=== PATIENT | female | born 1945 | race Two or more races ===

== ENCOUNTER → 2024-12-07 | Outpatient (CLI) | payer MEDICARE, SELFPAY ==
--- NOTE | 2024-12-07 09:22 | XR_ITS ---
Examination: PA lateral chest 2 views TECHNIQUE: Upright PA lateral chest 2 views Exam date and time: November 06, 2025 at 0932 hours INDICATIONS: Chronic coughing 3 years worse the last week. FINDINGS: Subtle pneumonia diffusely in the right lung and in the lingular segment left upper lobe Normal heart size Mild hyperexpansion IMPRESSION: Bilateral pneumonia as above
== END | disposition home or self-care (01) ==
LOC: SDIM 09:07
PROVIDERS: PCP Nurse Practitioner Primary Care; Referring Provider Nurse Practitioner Primary Care; Visit Provider Nurse Practitioner Primary Care
DX: J18.9 Pneumonia, unspecified organism (principal)
CPT/HCPCS: 71046

== ENCOUNTER → 2025-01-18 | Outpatient (CLI) | payer MEDICARE, SELFPAY ==
--- NOTE | 2025-01-18 10:45 | XR_ITS ---
Examination: PA lateral chest 2 views Technique: AP lateral chest 2 views Exam date and time: January 18, 2025 1057 hrs. Comparison December 07, 2024 Indications: Diffuse pneumonia right lung pneumonia in the lingular segment on chest film December 07, 2024. Findings: Normal heart size Significant hyperexpansion Parenchymal disease remains in the lingular segment Accentuation bronchovascular markings Prominent osteopenia Impression: COPD Scarring versus pneumonia in the lingular segment left upper lobe Bibasilar bronchiectasis
== END | disposition home or self-care (01) ==
PROVIDERS: PCP Nurse Practitioner Primary Care; Referring Provider Nurse Practitioner Primary Care; Visit Provider Nurse Practitioner Primary Care
DX: J44.9 Chronic obstructive pulmonary disease, unspecified (principal); R91.8 Other nonspecific abnormal finding of lung field; J47.9 Bronchiectasis, uncomplicated
CPT/HCPCS: 71046

== ENCOUNTER → 2025-02-23 | Outpatient (CLI) | payer MEDICARE, SELFPAY ==
[2025-02-23 12:15] VITALS: PULSE 76; RESP 16; O2SAT 98
[2025-02-23 12:31] VITALS: PULSE 70
[2025-02-23] MEDS: ALBUTEROL RT 2.5 MG/0.5 ML NEBU INH (12:31)
[2025-02-23 12:32] VITALS: PULSE 16; RESP 70; O2SAT 98
[2025-02-23] MEDS: SODIUM CHLORIDE RT SOL 0.9% 3 ML NEBU INH (12:32)
== END | disposition home or self-care (01) ==
PROVIDERS: PCP Nurse Practitioner Primary Care; Referring Provider Nurse Practitioner Primary Care; Visit Provider Nurse Practitioner Primary Care
DX: J47.9 Bronchiectasis, uncomplicated (principal)
CPT/HCPCS: 94013; 94060; 94640; 94726; 94729

== ENCOUNTER → 2025-05-03 | Outpatient (CLI) | payer OTHER, SELFPAY ==
--- NOTE | 2025-05-03 11:12 | XR_ITS ---
Examination: Lumbar spine, 5 views Technique: Lumbar spine AP, lateral, coned lateral lower lumbar spine, bilateral obliques 5 views Exam date and time: May 03, 2025 1134 hours INDICATIONS: Low back pain radiating down the right leg beginning one month ago FINDINGS: Prominent osteopenia Grade 1 anterolisthesis L4 on L5 No lumbar fracture Mild disc narrowing L4-L5, L5-S1 IMPRESSION: Mild disc narrowing L4-L5, L5-S1
== END | disposition home or self-care (01) ==
PROVIDERS: PCP Internal Medicine; Referring Provider Nurse Practitioner Primary Care; Visit Provider Nurse Practitioner Primary Care
DX: M48.061 Spinal stenosis, lumbar region without neurogenic claudication (principal); M48.07 Spinal stenosis, lumbosacral region
CPT/HCPCS: 72110

== ENCOUNTER → 2025-07-14 | Outpatient (CLI) | payer OTHER, SELFPAY ==
--- NOTE | 2025-07-14 09:11 | XR_ITS ---
Examination: PA lateral chest 2 views TECHNIQUE: Upright PA lateral chest 2 views Date and time: July 14, 2025 0955 hours INDICATIONS: Coughing 8 days. FINDINGS: Pneumonia at the left base and in the lingular segment Normal heart size Right lung clear IMPRESSION: Significant left lung pneumonia
== END | disposition home or self-care (01) ==
PROVIDERS: PCP Nurse Practitioner Primary Care; Referring Provider Nurse Practitioner Primary Care; Visit Provider Nurse Practitioner Primary Care
DX: J18.9 Pneumonia, unspecified organism (principal)
CPT/HCPCS: 71046

== ENCOUNTER → 2025-10-15 | Outpatient (CLI) | payer OTHER, SELFPAY ==
--- NOTE | 2025-10-15 16:00 | XR_ITS ---
Examination: CT abdomen with intravenous contrast CT pelvis with intravenous contrast 2-D coronal reconstructions 2-D sagittal reconstructions Date and time of exam: October 15, 2025, 1627 hours INDICATIONS: Anorexia 20 pound weight loss in 2 months. CTDI: vol (mGy) 8.86 DLP: (mGycm) 256 Technique: Multiple axial sections of the abdomen and pelvis have been obtained. 64 slice high-resolution scanner used. 3 mm axial sections have been obtained, post intravenous injection 60 cc Isovue 370 2-D sagittal, coronal reconstructions obtained. Low dose protocols were performed. One or more of the following dose reduction techniques were used; automated exposure control, adjustment of the mA and/or KV according to patient size, use of iterative reconstruction technique. Findings: Nodular parenchymal disease in the right middle lobe and right lower lobe 4 cm and smaller liver cysts No splenic adrenal or pancreatic mass No hydronephrosis Aorta normal size Contracted gallbladder No bowel obstruction No pericecal inflammatory change No diverticulitis Urinary bladder intact No pelvic mass Moderate osteopenia IMPRESSION: Nodular parenchymal disease in the right middle lobe and right lower lobe, differential would include active tuberculosis Recommend CT chest without intravenous contrast follow-up Contracted gallbladder No CT findings of appendicitis bowel obstruction or diverticulitis
== END | disposition home or self-care (01) ==
PROVIDERS: PCP Nurse Practitioner Primary Care; Referring Provider Nurse Practitioner Primary Care; Visit Provider Nurse Practitioner Primary Care
DX: R91.8 Other nonspecific abnormal finding of lung field (principal); K82.8 Other specified diseases of gallbladder
CPT/HCPCS: 74177; A4649; Q9967

== ENCOUNTER → 2025-10-26 | Outpatient (CLI) | payer OTHER, SELFPAY ==
--- NOTE | 2025-10-26 08:00 | XR_ITS ---
Examination: Screening digital mammography, bilateral Computer aided detection 3-D breast Tomosynthesis, bilateral Date and time of exam: October 26, 2025, 0816 hours, compared to mammograms dating to October 14, 2020 Indication: Screening Technique: Nonmagnified MLO, CC views of the breasts to been obtained, reconstructed from 3-D Tomosynthesis images. R2 computer aided detection program utilized for evaluation of suspicious masses and/or abnormal calcifications. 3-D Tomosynthesis images obtained. Findings: The breasts are heterogeneously dense, which may obscure small masses 7 mm nodule 12 o'clock position right breast posterior depth partially circumscribed Impression: BI-RADS Category 0: Incomplete: Need additional imaging evaluation Recommend follow-up spot tomographic views of 7 mm nodule 12 o'clock position right breast as well as bilateral breast sonography to complete the work-up
== END | disposition home or self-care (01) ==
LOC: CDIM 08:04
PROVIDERS: Referring Provider Nurse Practitioner Primary Care; Visit Provider Nurse Practitioner Primary Care
DX: Z12.31 Encounter for screening mammogram for malignant neoplasm of breast (principal); R92.8 Other abnormal and inconclusive findings on diagnostic imaging of breast; N63.15 Unspecified lump in the right breast, overlapping quadrants
CPT/HCPCS: 77063; 77067

== ENCOUNTER → 2025-11-01 | Outpatient (CLI) | payer OTHER, SELFPAY ==
[2025-11-01 10:50] LABS: Cult AFB Sendout- Sputum* See Sep Rpt; Smear, Acid Fast* See Sep Rpt
== END | disposition home or self-care (01) ==
LOC: COPL 10:26
PROVIDERS: PCP Nurse Practitioner Primary Care; Referring Provider Nurse Practitioner Primary Care; Visit Provider Nurse Practitioner Primary Care
DX: R05.3 Chronic cough (principal); R63.4 Abnormal weight loss; Z11.4 Encounter for screening for human immunodeficiency virus [HIV]
CPT/HCPCS: 87015; 87116; 87206

== ENCOUNTER → 2025-11-08 | Outpatient (CLI) | payer OTHER, SELFPAY ==
[2025-11-08 12:19] LABS: Cult AFB Sendout- Sputum* See Sep Rpt; Smear, Acid Fast* See Sep Rpt
[2025-11-08 12:19] LABS: Cult AFB Sendout- Sputum* See Sep Rpt; Smear, Acid Fast* See Sep Rpt
== END | disposition home or self-care (01) ==
LOC: SLDO 12:06
PROVIDERS: PCP Nurse Practitioner Primary Care; Referring Provider Nurse Practitioner Primary Care; Visit Provider Nurse Practitioner Primary Care
DX: R05.3 Chronic cough (principal); R63.4 Abnormal weight loss; Z11.4 Encounter for screening for human immunodeficiency virus [HIV]
CPT/HCPCS: 87015; 87116; 87206

== ENCOUNTER → 2025-11-22 | Outpatient (CLI) | payer OTHER, SELFPAY ==
[2025-11-22 11:06] LABS: Quantiferon-TB* See Sep Rpt
[2025-11-22 11:32] LABS: Sed Rate (ESR) 55 mm/hr (0-30)
[2025-11-22 11:44] LABS: Alanine Aminotransferase 14 U/L (10-49); Albumin, Serum 4.0 gm/dL (3.4-4.8); Albumin/Globulin Ratio 1.3 (1.2-2.2); Alkaline Phosphatase 66 U/L (46-116); Anion Gap 10 (7-16); Aspartate Amino Transferase 18 U/L (0-34); BUN/Creatinine Ratio 26 Ratio (12-20); Bilirubin,Total 0.5 mg/dL (0.3-1.2); Blood Urea Nitrogen 13 mg/dL (9-23); C-Reactive Protein 1.3 mg/dL (0.0-0.9); Calcium 9.6 mg/dL (8.3-10.6); Calcium (Corrected) 9.6 mg/dL (8.5-10.1); Carbon Dioxide 30.3 mMol/L (20.0-31.0); Chloride 102 mMol/L (98-107); Creatinine (Component) 0.5 mg/dL (0.6-1.3); Globulin 3.1 gm/dL (2.3-3.5); Glucose 79 mg/dL (74-106); Osmolality,Calculated 282 (275-295); Potassium 4.2 mMol/L (3.4-5.1); Sodium 142 mMol/L (136-145); Total Protein 7.1 gm/dL (5.7-8.2); eGFR > 60 See Note
[2025-11-22 14:18] LABS: Cocci Serology, IgM Negative (Negative)
[2025-11-23 11:49] LABS: Cocci Serology, IgG Negative (Negative)
[2025-11-29 07:17] LABS: HIV Ag/Ab, 4th Gen NON-REACTIVE
== END | disposition home or self-care (01) ==
LOC: COPL 10:35
PROVIDERS: PCP Nurse Practitioner Primary Care; Referring Provider Nurse Practitioner Primary Care; Visit Provider Nurse Practitioner Primary Care
DX: R05.3 Chronic cough (principal); R63.4 Abnormal weight loss; Z11.4 Encounter for screening for human immunodeficiency virus [HIV]
CPT/HCPCS: 36415; 80053; 85652; 86140; 86331; 86480; 86635; 87389

== ENCOUNTER → 2025-11-24 | Outpatient (CLI) | payer OTHER, SELFPAY ==
--- NOTE | 2025-11-24 11:00 | XR_ITS ---
Study: Chest CT. INDICATION: Chronic cough for years. TECHNIQUE: 2 mm slice thickness with 60 mL of Isovue-370. 3 mm axial, coronal and sagittal reformats. 3D surface reconstruction of the skeleton with rotating presentation. Radiation dose 181 mGy centimeters with dose reduction technique. 1387 images at 1115 hours 24 November 2025. FINDINGS: The patient was imaged from the thyroid cartilage to the lung bases. The left thyroid gland contains a small amount of nebulous calcification. The isthmus and right lobe contain low-density foci which may be cysts. There is no adenopathy at the thoracic inlet or hilar regions. Paratracheal lymph nodes vary between 7.5 and 9 mm short axis. The aorta and pulmonary outflow tract are normal in caliber. The heart is normal in size and contour. There are minor aortic rim calcifications. A trace of calcific plaque is noted in the mitral annulus. There are no coronary artery calcifications. The pericardial space is dry. The lungs are hyperexpanded. Bronchiectasis is present in the upper and lower lobes. There is a diffuse distribution of peribronchial groundglass infiltrates and periodic micronodularity. In addition, there are numerous additional areas of ground glass and solid nodularity ranging up to 2.2 x 1.0 cm and 1.5 cm respectively. These solid nodules bear smooth margination. There are no spiculated lesions. The pleural spaces are dry. The adrenal glands are normal in appearance. There are numerous hepatic cystic structures which the largest is in the mid posterior right hepatic lobe measuring 4.6 x 3.8 cm. The gallbladder is not imaged. IMPRESSION: 1. This study is of concern for widespread acute and chronic coccidioidomycosis or other fungal disease of the lungs. 2. Mildly to moderately reactive central mediastinal lymphadenopathy.
== END | disposition home or self-care (01) ==
LOC: SCAT 10:19
PROVIDERS: PCP Nurse Practitioner Primary Care; Referring Provider Nurse Practitioner Primary Care; Visit Provider Nurse Practitioner Primary Care
DX: R59.0 Localized enlarged lymph nodes (principal); R05.3 Chronic cough
CPT/HCPCS: 71260; A4649; Q9967